=== PATIENT | male | born 1945 | race Caucasian/White ===

== ENCOUNTER 2017-02-20 08:26 | Day surgery (SDC) | payer MEDICARE ==
[2017-02-13 09:49] VITALS: BP 163/92
[~2017-02-20] VITALS: Ht 167.6 cm; Wt 82.4 kg
[~2017-02-20 08:26] MED LIST: BACITRACIN 50,000 UNIT ONE; BUPIVACAINE/PF 0.5% ONE; THROMBIN 5,000 UNIT VIAL TP ONE; [UNRECOGNIZED DRUG - REMARK]
[2017-02-20] MEDS ORDERED: MIDAZOLAM 1 MG/ML, 2ML ONE (09:10)
[2017-02-20 09:21] VITALS: BP 163/92
[2017-02-20] MEDS ORDERED: LACTATED RINGERS 1,000 ML IV SCH (09:44)
[2017-02-20] MEDS ORDERED: FENTANYL PF 100 MCG/2ML ONE ×2 (09:54)
[2017-02-20] MEDS ORDERED: DEXAMETHASONE 4 MG/ML, 1ML ONE (09:55)
[2017-02-20] MEDS ORDERED: ROCURONIUM 10 MG/ML,10ML ONE ×2 (09:55→09:58)
[2017-02-20] MEDS ORDERED: PROPOFOL 10 MG/ML, 20ML ONE (09:55)
[2017-02-20] MEDS ORDERED: CEFAZOLIN 1,000 MG ONE (09:55)
[2017-02-20] MEDS ORDERED: GLYCOPYRROLATE 0.2MG/1ML, 5ML ONE (09:56)
[2017-02-20] MEDS ORDERED: ONDANSETRON 2MG/ML, 2ML ONE (09:56)
[2017-02-20] MEDS ORDERED: SUCCINYLCHOLINE 20 MG/ML, 10ML ONE (09:56)
[2017-02-20] MEDS ORDERED: NEOSTIGMINE 1 MG/ML, 10ML ONE (09:56)
[2017-02-20] MEDS ORDERED: ALBUTEROL SULFATE 2.5 MG/3 ML NPPB PRN (11:00)
[2017-02-20] MEDS ORDERED: OXYcodone 5 MG/5 ML ORAL.SOL UDC PO PRN (11:00)
[2017-02-20] MEDS ORDERED: HYDROcodone/APAP 7.5-325MG/15ML UDC PO PRN (11:00)
[2017-02-20] MEDS ORDERED: FENTANYL PF 100 MCG/2ML IV PRN (11:00)
[2017-02-20] MEDS ORDERED: hydrALAzine 20 MG/ML, 1ML IV PRN (11:00)
[2017-02-20] MEDS ORDERED: METOPROLOL 1 MG/ML, 5ML IV PRN (11:00)
[2017-02-20] MEDS ORDERED: DIAZEPAM 5 MG/ML, 2ML IVPush PRN (11:00)
[2017-02-20] MEDS ORDERED: PROMETHAZINE 25 MG/ML, 1ML IV PRN (11:00)
[2017-02-20] MEDS ORDERED: EPHEDRINE 50 MG/ML, 1ML IVPush PRN (11:00)
[2017-02-20] MEDS ORDERED: ACETAMINOPHEN 325 MG TABLET PO PRN (11:00)
[2017-02-20] MEDS ORDERED: ONDANSETRON 2MG/ML, 2ML IVPush PRN (11:00)
[2017-02-20] MEDS ORDERED: MIDAZOLAM 1 MG/ML, 2ML IV PRN (11:00)
[2017-02-20] MEDS ORDERED: LABETALOL 5MG/ML, 20ML IV PRN (11:00)
[2017-02-20] MEDS ORDERED: ACETAMINOPHEN 650 MG/20.3 ML UDC ONE (11:29)
[2017-02-20] MEDS ORDERED: OXYcodone 5 MG/5 ML ORAL.SOL UDC ONE (11:29)
[2017-02-20] MEDS ORDERED: HYDROmorphone 1 MG/ML, 1ML ONE (11:30)
[2017-02-20] MEDS: HYDROmorphone 1 MG/ML, 1ML IV PRN ×2 (11:39→11:45)
[2017-02-20] MEDS ORDERED: HYDROmorphone 2MG TABLET PO PRN (14:30)
== END 2017-02-20 15:05 ==
LOC: OUT 08:26
PROVIDERS: ATTEND Neurological Surgery
DX: M54.17 Radiculopathy, lumbosacral region (principal); M48.061 Spinal stenosis, lumbar region without neurogenic claudication; Z87.39 Personal history of other diseases of the musculoskeletal system and connective tissue; Z88.6 Allergy status to analgesic agent; Z88.5 Allergy status to narcotic agent; Z88.8 Allergy status to other drugs, medicaments and biological substances
CPT/HCPCS: 63047; 63048; 72100; J0330; J0690; J1100; J1170; J2250; J2405; J2704; J2710; J3010; J3490